=== PATIENT | male | born 1955 | race Caucasian/White ===

== ENCOUNTER 2020-04-14 15:57 | Emergency (ER) | payer MEDICARE ==
[~2020-04-14] VITALS: Ht 157.5 cm; Wt 65.9 kg
[~2020-04-14 15:57] MED LIST: ASPIRIN325 MG PO; BABY ASPIRIN81 MG PO; COLACE100 MG PO; ELAVIL25 MG PO; FLEXERIL10 MG PO; PRILOSEC20 MG PO; VOLTAREN75 MG PO; ZOCOR40 MG PO
[2020-04-14 16:11] VITALS: Ht 157.5 cm; Wt 65.9 kg
[2020-04-14] MEDS ORDERED: HYDROCODON-ACE1 EA10 PO (17:03)
[2020-04-14 17:44] VITALS: BP 128/70
== END 2020-04-14 17:45 | disposition home or self-care (01) ==
LOC: D.ER 15:57
DX: M25.512 Pain in left shoulder (principal)

== ENCOUNTER 2020-04-19 14:34 | Inpatient (IN) | payer MEDICARE, OTHER ==
[~2020-04-19] VITALS: Ht 154.9 cm; Wt 64.9 kg
[~2020-04-19 14:34] MED LIST changes: +HYDROCODON-ACE1 EA10 PO
[2020-04-26] MEDS ORDERED: OMEPRAZOLE20 M1 PO (10:35)
[2020-04-26] MEDS ORDERED: LISINOPRIL10 MG PO (10:35)
[2020-04-26] MEDS ORDERED: CYCLOBENZAPRINE10 MG PO (10:35)
[2020-04-26] MEDS ORDERED: ZOCOR40 MG PO (10:36)
[2020-04-26 12:11] LABS: BILIRUBIN NEGATIVE (NEGATIVE); GLUCOSE NEGATIVE (NEGATIVE); KETONE NEGATIVE (NEGATIVE); NITRITE NEGATIVE (NEGATIVE); UROBILINOGEN NORMAL (NORMAL)
[2020-04-26 12:17] LABS: ANION GAP 7.4 mmol/L (8-16); CALCIUM 8.9 mg/dL (8.5-10.1); CARBON DIOXIDE 31.3 mmol/L (21.0-32.0); CREATININE - SERUM 1.2 mg/dL (0.6-1.3); POTASSIUM - SERUM 4.7 mmol/L (3.5-5.1)
[2020-04-26 12:23] LABS: APTT 26.6 SECONDS (22.8-39.4); INR 0.97 (0.85-1.17); PROTIME 12.9 SECONDS (11.6-15.0)
[2020-04-26 12:54] LABS: BASOPHILS 0.5 % (0-2); EOSINOPHILS 0.9 % (0-7); HEMATOCRIT 48.2 % (42.0-54.0); IMMATURE GRANULOCYTES 0.2 % (0-5); LYMPHOCYTES 37.8 % (15-50); MCH 30.9 pg (26.0-34.0); MCHC 33.2 g/dL (31.0-37.0); MCV 93.2 fL (80.0-100.0); MEAN PLATELET VOLUME 9.1 fL (7.4-10.4); MONOCYTES 6.8 % (2-11); NEUTROPHILS 53.8 % (40-80); RBC 5.17 10x6/uL (4.20-6.10); RDW 13.1 % (11.5-14.5); WBC 5.6 10x3/uL (4.8-10.8)
[2020-04-26 12:57] LABS: PLATELET COUNT 273 10x3/uL (130-400)
[2020-04-30] VITALS (8 sets, daily range): BP systolic 102–117; BP diastolic 58–75; BMI 27.0
--- NOTE | 2020-04-30 13:02 | NUR ---
PLASMA BLADE AND AQUAMANIS USED. PLASMA BLADE SETTING 6/8. AQUAMANIS SETTING 170. CAUTERY PAD PLACED ON LEFT THIGH. LOT #[id number] EXP. 09/18/2021.
--- NOTE | 2020-04-30 15:15 | NUR ---
PATIENT IN BED WITH IV INTACT. NO COMPLAINTS OR SIGNS OF DISTRESS. DRESSING AND DRAIN CDI. VS STABLE. SCDS ON AND WORKING. IS GIVEN AND INSTRUCTED HOW TO USE. PATIENT VERBALIZED UNDERSTANDING. FAMILY AT BEDSIDE. CALL LIGHT WITHIN REACH.
--- NOTE | 2020-04-30 15:30 | NUR ---
REPORT GIVEN TO ANA GALVEZ.
[2020-05-01] VITALS: BP 111/57
[2020-05-01 04:30] VITALS: BP 104/56
--- NOTE | 2020-05-01 06:29 | OP ---
PATIENT NAME: EDMOND DONATO MEDICAL RECORD: [id number] :53 LOCATION:[facility] D.1210 ADMISSION DATE:04/30/20 SURGEON: CHILO MOROCHO DO DATE OF OPERATION: 04/30/2020 PROCEDURE PERFORMED: Left reverse total shoulder arthroplasty. PREOPERATIVE DIAGNOSIS: Left shoulder rotator cuff tear arthropathy. POSTOPERATIVE DIAGNOSIS: Left shoulder rotator cuff tear arthropathy. INDICATIONS: Mr. Donato is a 65-year-old male who has had a rotator cuff repair in the past that he had re-torn it, had an MRI, which showed a torn supraspinatus and infraspinatus with retraction and atrophy. I informed that likely best treatment would be a reverse total shoulder and he wanted to do that. He is aware of the risks including infection, bleeding, damage to axillary nerve, other nerves in the area, continued pain, arthrofibrosis, restriction of motion, blood clots, failure of implant, and even . He signed the consent. SURGEON: Chilo Morocho DO DESCRIPTION OF PROCEDURE: The patient was taken to the operative suite after given a block by anesthesia in preoperative area and laid in the supine position, given general anesthetic and intubated. He was then placed in the beach chair position and well positioned. The left shoulder was then prepped and draped in sterile fashion. A timeout was performed and everyone was in agreement with the correct side, site, patient and procedure. The patient was given 900 mg of clindamycin and a gram of TXA prior to starting. I then made an incision along the deltopectoral interval and made careful dissection down to the interval, opened the clavipectoral fascia, released the proximal centimeter of the pec tendon, tenodesed the long head of the bicep tendon to the pec stump and then opened up the rotator interval, tagged the subscapularis tendon, peeled it off the lesser tuberosity exposing the humeral head, then put an intramedullary guide and then cut the humeral head and exposed the glenoid, removed the labrum. Placed the centering pin and then reamed and then put in a 25 baseplate with a 40-mm screw, then reamed around that and then impacted on 36 sphere, tightened that down with a screw. Once it was tightened down in the proper position, I then exposed the humerus, reamed by hand and then broached to a 5, 5 fit well. We trialed the 5 with a 6 poly and that fit very well and had good range of motion and it was tight, had one finger loose on the conjoined tendon and good tightness on the deltoid fibers. I then dislocated that and put the actual implant in and reduced it and then irrigated with 10% povidone-iodine and 500 mL normal saline and let that sit for a few minutes and then irrigated out with a liter of normal saline and then put in Yissel powder, vancomycin and tobramycin powder, put in 1/8-inch Hemovac drain into the shoulder and the shoulder was then closed by Jasson Jeff, certified surgical aides teacher, with 2-0 Vicryl in inverted fashion, 4-0 Monocryl running on the skin, and Prineo glue placed on the skin. The drain was secured with 2 Tegaderms. He was then placed in a sling and was awakened and taken to recovery room in stable condition. BLOOD LOSS: Approximately 300 mL. COMPLICATIONS: None. OPERATIVE REPORT [id number] EDMOND DONATO TRANSINT:[id number] Voice Confirmation ID: [id number] DOCUMENT ID: [id number] CHILO MOROCHO DO at 0629 CC: [id number] DICTATION DATE: 04/30/20 1405 HEAD FILTER TANK TENDER HELPER: 04/30/20 221 ADM IN [facility] [address] [place] [address]
[2020-05-01 06:31] LABS: BASOPHILS 0 % (0-2); EOSINOPHILS 0 % (0-7); HEMATOCRIT 41.7 % (42.0-54.0); HEMOGLOBIN 13.8 g/dL (13.5-17.5); IMMATURE GRANULOCYTES 0.3 % (0-5); LYMPHOCYTES 5.7 % (15-50); MCH 30.6 pg (26.0-34.0); MCHC 33.1 g/dL (31.0-37.0); MCV 92.5 fL (80.0-100.0); MEAN PLATELET VOLUME 9.3 fL (7.4-10.4); MONOCYTES 3.1 % (2-11); NEUTROPHILS 90.9 % (40-80); RBC 4.51 10x6/uL (4.20-6.10); RDW 13.2 % (11.5-14.5); WBC 18.6 10x3/uL (4.8-10.8)
[2020-05-01 06:36] LABS: ALBUMIN 2.9 g/dL (3.4-5.0); ANION GAP 14.2 mmol/L (8-16); BILIRUBIN - TOTAL 0.36 mg/dL (0.2-1.3); CALCIUM 8.2 mg/dL (8.5-10.1); CARBON DIOXIDE 23.2 mmol/L (21.0-32.0); CREATININE - SERUM 1.3 mg/dL (0.6-1.3); POTASSIUM - SERUM 4.4 mmol/L (3.5-5.1); PROTEIN - SERUM 5.6 g/dL (6.4-8.2)
[2020-05-01 07:05] LABS: PLATELET COUNT 335 10x3/uL (130-400)
[2020-05-01 07:57] VITALS: BP 99/60
--- NOTE | 2020-05-01 08:00 | NUR ---
PATIENT IN BED WITH EYES CLOSED RESTING QUIETLY. NO COMPLAINTS OR SIGNS OF DISTRESS. IV INTACT AND INFUSING. CALL LIGHT WITHIN REACH.
[2020-05-01 09:00] VITALS: Ht 154.9 cm; Wt 64.9 kg
--- NOTE | 2020-05-01 11:30 | NUR ---
PATIENT SITTING UP IN CHAIR WITH IV INTACT. SALINE LOCKED AT THIS TIME. NO COMPLAUINTS. CALL LIGHT WITHIN REACH.
--- NOTE | 2020-05-01 12:00 | NUR ---
GOT ORDERS FOR TYLENOL WITH JAMAR FOR PATIENT FROM DR. MOROCHO. PATIENT STATED NORCO MAKES HIM VERY SICK. NEW ORDER RECIEVED AND CARRIED OUT.
[2020-05-01 12:16] VITALS: BP 110/67
[2020-05-01] MEDS ORDERED: TYLENOL W/CODEI1 TAB PO (14:28)
[2020-05-01] MEDS ORDERED: VISTARIL50 MG PO (14:28)
[2020-05-01] MEDS ORDERED: ZOFRAN ODT4 MG/UDTAB PO (14:29)
--- NOTE | 2020-05-01 16:15 | NUR ---
PATIENT RECIEVED DC INSTRUCTIONS. VERBALIZED UNDERSTANDING. PRESCRIPTIONS GIVEN TO PATIENT WELL. NO QUESTIONS AT THIS TIME. IV REMOVED WITH CATH TIP INTACT. WAITING FOR WC FOR DC. CALL LIGHT WITHIN REACH.
== END 2020-05-01 16:39 | disposition home or self-care (01) | DRG 483 ==
LOC: D.M3 04-30 10:30 → D.SDCHOLD 04-30 10:30 → D.M3 04-30 11:33 → D.SDCHOLD 04-30 12:30 → D.M3 05-01 16:39
PROVIDERS: Family Medicine Adult Medicine; ADMIT Orthopaedic Surgery; ATTEND Orthopaedic Surgery
PROC: 0RRK00Z Replacement of Left Shoulder Joint with Reverse Ball and Socket Synthetic Substitute, Open Approach (ICD-10-PCS; principal; 2020-04-30 13:00)
DX: M19.012 Primary osteoarthritis, left shoulder (principal); F17.203 Nicotine dependence unspecified, with withdrawal; I10 Essential (primary) hypertension; E78.5 Hyperlipidemia, unspecified; K21.9 Gastro-esophageal reflux disease without esophagitis; K59.00 Constipation, unspecified; M19.90 Unspecified osteoarthritis, unspecified site

== ENCOUNTER → 2020-04-22 09:12 | Outpatient (CLI) | payer MEDICARE, OTHER ==
[2020-04-14 16:11] VITALS: BMI 26.6
== END | disposition home or self-care (01) ==
LOC: D.LABREF 09:12
PROVIDERS: ATTEND Orthopaedic Surgery
DX: M19.012 Primary osteoarthritis, left shoulder (principal)